=== PATIENT | female | born 1935 | race Caucasian/White ===

== ENCOUNTER 2019-10-29 13:45 | Emergency (ER) | payer MEDICARE ==
[~2019-10-29] VITALS: Ht 154.9 cm; Wt 62.7 kg
[2019-10-29] MEDS ORDERED: TIROSINT75 MC1 PO (13:53)
[2019-10-29] MEDS ORDERED: ATENOLOL50 MG PO ×2 (13:53→19:44)
[2019-10-29] MEDS ORDERED: LOSARTAN POTASS25 MG PO ×2 (13:54→19:44)
[2019-10-29] MEDS ORDERED: ATORVASTATIN CA20 MG PO ×2 (13:54→19:44)
[2019-10-29] MEDS ORDERED: ALDACTONE25 M1 PO ×2 (13:54→19:44)
[2019-10-29] MEDS ORDERED: FAMOTIDINE40 M1 PO ×2 (13:54→19:44)
[2019-10-29 14:27] LABS: EOS # 0.1 (0.04-0.40); EOS % 1.6 % (1.0-5.0); HEMATOCRIT 40.5 % (37.0-47.0); MEAN CELL VOLUME 97 fl (78-100); MEAN CORPUSCULAR HEMOGLOBIN 31 pg (27-31); MEAN CORPUSCULAR HGB CONC 32 g/dL (33-37); MEAN PLATELET VOLUME 9.2 fl (7.4-10.4); MONO # 0.3 (0.20-0.80); NEU # 4.7 (1.40-6.50); PLATELET COUNT 238 K/mm3 (130-400); RED BLOOD COUNT 4.18 M/mm3 (4.10-5.30); RED CELL DISTRIBUTION WIDTH 13.5 % (11.5-14.5); WHITE BLOOD COUNT 6.1 K/mm3 (4.8-10.8)
[2019-10-29 14:34] LABS: ALBUMIN 3.9 g/dL (3.4-4.8)
[2019-10-29 14:35] LABS: POTASSIUM 3.9 mmol/L (3.5-5.1); SODIUM 138 mmol/L (136-145)
[2019-10-29 14:36] LABS: CALCIUM 9.6 mg/dL (8.3-10.5)
[2019-10-29 14:37] LABS: GLUCOSE 102 mg/dL (65-105); TOTAL PROTEIN 6.9 g/dL (6.2-8.1)
[2019-10-29 14:38] LABS: CARBON DIOXIDE 24 mmol/L (23-31)
[2019-10-29 14:39] LABS: TOTAL BILIRUBIN 0.6 mg/dL (0.2-1.2)
[2019-10-29 14:42] LABS: AST-SGOT 23 U/L (5-34)
[2019-10-29 14:44] LABS: ALT/SGPT 20 U/L (0-55)
[2019-10-29 14:55] LABS: TROPONIN-I < 0.03 ng/mL (<0.030)
[2019-10-29 16:09] LABS: URINE APPEARANCE HAZY; URINE BILIRUBIN NEGATIVE (NEGATIVE); URINE BLOOD NEGATIVE (NEGATIVE); URINE COLOR YELLOW; URINE GLUCOSE NEGATIVE (NEGATIVE); URINE KETONE NEGATIVE (NEGATIVE); URINE LEUKOCYTE ESTERASE TRACE (NEGATIVE); URINE NITRATE NEGATIVE (NEGATIVE); URINE PROTEIN(semi-quant) TRACE mg/dL (NEGATIVE); URINE UROBILINOGEN NORMAL (NORMAL); URINE WBC 0-1 /hpf (0-3)
[2019-10-29] MEDS ORDERED: LEVOTHYROXIN0.075 MG PO (19:44)
[2019-10-29 20:41] VITALS: BP 192/78
== END 2019-10-29 20:52 | disposition home or self-care (01) ==
LOC: ED 13:45
PROVIDERS: Nurse Practitioner
DX: I10 Essential (primary) hypertension (principal); E78.5 Hyperlipidemia, unspecified; E03.9 Hypothyroidism, unspecified; Z87.891 Personal history of nicotine dependence

== ENCOUNTER 2021-06-13 14:54 | Emergency (ER) | payer MEDICARE ==
[~2021-06-13] VITALS: Wt 68.7 kg
[~2021-06-13 14:54] MED LIST: ALDACTONE25 M1 PO; ATENOLOL50 MG PO; ATORVASTATIN CA20 MG PO; FAMOTIDINE40 M1 PO; LEVOTHYROXIN0.075 MG PO; LEVOTHYROXINE0.05 MG PO; LOSARTAN POTASS25 MG PO
[2021-06-13 15:19] LABS: BASO # 0.02 K/mm3 (0.02-0.10); EOS # 0.33 K/mm3 (0.04-0.40); EOS % 1.8 % (1.0-5.0); HEMOGLOBIN 11.2 g/dL (12.5-16.0); LYMPH# 1.09 K/mm3 (1.50-4.00); MEAN CELL VOLUME 98 fl (78-100); MEAN CORPUSCULAR HEMOGLOBIN 31 pg (27-31); MEAN CORPUSCULAR HGB CONC 32 g/dL (33-37); MEAN PLATELET VOLUME 8.8 fl (7.4-10.4); MONO # 0.62 K/mm3 (0.20-0.80); NEU # 16.01 K/mm3 (1.40-6.50); PLATELET COUNT 242 K/mm3 (130-400); RED BLOOD COUNT 3.57 M/mm3 (4.10-5.30); RED CELL DISTRIBUTION WIDTH 12.6 % (11.5-14.5); WHITE BLOOD COUNT 18.1 K/mm3 (4.8-10.8)
[2021-06-13 15:34] LABS: ALBUMIN 3.5 g/dL (3.4-4.8); POTASSIUM 4.8 mmol/L (3.5-5.1); SODIUM 126 mmol/L (136-145)
[2021-06-13 15:35] LABS: CALCIUM 9.2 mg/dL (8.3-10.5)
[2021-06-13 15:36] LABS: GLUCOSE 113 mg/dL (65-105); TOTAL PROTEIN 6.3 g/dL (6.2-8.1)
[2021-06-13 15:37] LABS: CARBON DIOXIDE 18 mmol/L (23-31)
[2021-06-13 15:38] LABS: TOTAL BILIRUBIN 0.5 mg/dL (0.2-1.2)
[2021-06-13 15:40] LABS: D-DIMER 0.8 mg/L FEU (0.15-0.50)
[2021-06-13 15:42] LABS: AST-SGOT 19 U/L (5-34)
[2021-06-13 15:43] LABS: ALT/SGPT 15 U/L (0-55)
[2021-06-13 15:50] LABS: TROPONIN-I < 0.03 ng/mL (<0.030)
[2021-06-13] MEDS ORDERED: VITAMIN D3125 MC1 PO (17:35)
[2021-06-13] MEDS ORDERED: PROBIOTIC1 EAC1 PO (17:36)
[2021-06-13] MEDS ORDERED: VITAMIN B12 1541 TAB PO (17:37)
[2021-06-13] MEDS ORDERED: ALDACTONE 25MG25 MG PO (17:37)
[2021-06-13] MEDS ORDERED: VITAMIN C PUR1000 MG PO (17:38)
[2021-06-13] MEDS ORDERED: PHARMASSURE ZIN50 MG PO (17:39)
[2021-06-13] MEDS ORDERED: CORICIDIN COUGH1 TAB PO (17:40)
[2021-06-13] MEDS ORDERED: BEET (17:40)
[2021-06-13 18:14] VITALS: BP 164/60
[2021-06-13 19:19] LABS: URINE APPEARANCE CLEAR; URINE BILIRUBIN NEGATIVE (NEGATIVE); URINE BLOOD TRACE (NEGATIVE); URINE COLOR YELLOW; URINE GLUCOSE NEGATIVE (NEGATIVE); URINE KETONE NEGATIVE (NEGATIVE); URINE LEUKOCYTE ESTERASE NEGATIVE (NEGATIVE); URINE NITRATE NEGATIVE (NEGATIVE); URINE PROTEIN(semi-quant) 1+ mg/dL (NEGATIVE); URINE UROBILINOGEN NORMAL (NORMAL); URINE WBC 0-1 /hpf (0-3)
[2021-06-14] MEDS ORDERED: LEVOTHYROXIN0.075 MG PO (06:30)
== END 2021-06-13 18:14 | disposition other institution (70) ==
LOC: ED 14:54
PROVIDERS: Physician Assistant
DX: J44.9 Chronic obstructive pulmonary disease, unspecified (principal); I50.9 Heart failure, unspecified; I11.0 Hypertensive heart disease with heart failure; E87.1 Hypo-osmolality and hyponatremia; J18.9 Pneumonia, unspecified organism; R65.10 Systemic inflammatory response syndrome (SIRS) of non-infectious origin without acute organ dysfunction; E78.5 Hyperlipidemia, unspecified; E03.9 Hypothyroidism, unspecified; K21.9 Gastro-esophageal reflux disease without esophagitis; Z87.891 Personal history of nicotine dependence; Z20.822 Contact with and (suspected) exposure to COVID-19; Z88.1 Allergy status to other antibiotic agents; Z79.899 Other long term (current) drug therapy; Z79.890 Hormone replacement therapy
CPT/HCPCS: J1940; J7030; Q9967

== ENCOUNTER 2021-06-13 17:14 | Inpatient (IN) | payer MEDICARE ==
[~2021-06-13] VITALS: Wt 65.4 kg
[2021-06-13] MEDS ORDERED: VITAMIN D3125 MC1 PO (17:35)
[2021-06-13] MEDS ORDERED: PROBIOTIC1 EAC1 PO (17:36)
[2021-06-13] MEDS ORDERED: ALDACTONE 25MG25 MG PO (17:37)
[2021-06-13] MEDS ORDERED: VITAMIN B12 1541 TAB PO (17:37)
[2021-06-13] MEDS ORDERED: VITAMIN C PUR1000 MG PO (17:38)
[2021-06-13] MEDS ORDERED: PHARMASSURE ZIN50 MG PO (17:39)
[2021-06-13] MEDS ORDERED: CORICIDIN COUGH1 TAB PO (17:40)
[2021-06-13] MEDS ORDERED: BEET (17:40)
[2021-06-13 22:04] VITALS: BP 191/72
[2021-06-13 22:35] VITALS: BP 200/80
[2021-06-13 23:56] VITALS: BP 184/78
[2021-06-14] VITALS (7 sets, daily range): BP systolic 164–203; BP diastolic 67–80
[2021-06-14] MEDS ORDERED: LEVOTHYROXIN0.075 MG PO (06:30)
[2021-06-14 07:09] LABS: BASO # 0.01 K/mm3 (0.02-0.10); EOS # 0.01 K/mm3 (0.04-0.40); EOS % 0.1 % (1.0-5.0); HEMATOCRIT 32.9 % (37.0-47.0); HEMOGLOBIN 10.7 g/dL (12.5-16.0); MEAN CELL VOLUME 97 fl (78-100); MEAN CORPUSCULAR HEMOGLOBIN 32 pg (27-31); MEAN CORPUSCULAR HGB CONC 33 g/dL (33-37); MONO # 0.05 K/mm3 (0.20-0.80); NEU # 13.68 K/mm3 (1.40-6.50); PLATELET COUNT 252 K/mm3 (130-400); RED CELL DISTRIBUTION WIDTH 12.5 % (11.5-14.5); WHITE BLOOD COUNT 14.8 K/mm3 (4.8-10.8)
[2021-06-14 07:15] LABS: ALBUMIN 3.4 g/dL (3.4-4.8)
[2021-06-14 07:16] LABS: POTASSIUM 4.5 mmol/L (3.5-5.1)
[2021-06-14 07:17] LABS: CALCIUM 8.9 mg/dL (8.3-10.5)
[2021-06-14 07:20] LABS: TOTAL BILIRUBIN 0.3 mg/dL (0.2-1.2)
[2021-06-15 02:10] VITALS: BP 183/74
[2021-06-15 06:13] VITALS: BP 194/81
[2021-06-15 09:19] LABS: HEMATOCRIT 30.4 % (37.0-47.0); HEMOGLOBIN 9.9 g/dL (12.5-16.0); LYMPH# 0.66 K/mm3 (1.50-4.00); MEAN CELL VOLUME 98 fl (78-100); MEAN CORPUSCULAR HEMOGLOBIN 32 pg (27-31); MEAN CORPUSCULAR HGB CONC 33 g/dL (33-37); MEAN PLATELET VOLUME 8.9 fl (7.4-10.4); MONO # 0.11 K/mm3 (0.20-0.80); NEU # 17.23 K/mm3 (1.40-6.50); PLATELET COUNT 246 K/mm3 (130-400); RED BLOOD COUNT 3.11 M/mm3 (4.10-5.30); RED CELL DISTRIBUTION WIDTH 12.8 % (11.5-14.5); WHITE BLOOD COUNT 18.3 K/mm3 (4.8-10.8)
[2021-06-15 09:24] LABS: ALBUMIN 3.2 g/dL (3.4-4.8); POTASSIUM 4.9 mmol/L (3.5-5.1)
[2021-06-15 09:25] LABS: CALCIUM 8.6 mg/dL (8.3-10.5)
[2021-06-15 09:27] LABS: TOTAL PROTEIN 5.9 g/dL (6.2-8.1)
[2021-06-15 09:28] LABS: TOTAL BILIRUBIN 0.3 mg/dL (0.2-1.2)
[2021-06-15 10:08] VITALS: BP 178/70
[2021-06-15 14:00] VITALS: BP 188/68
[2021-06-15 18:03] VITALS: BP 170/52
[2021-06-15 22:13] VITALS: BP 170/52
[2021-06-16] VITALS (7 sets, daily range): BP systolic 170–213; BP diastolic 60–83
[2021-06-16 07:58] LABS: HEMATOCRIT 33.6 % (37.0-47.0); HEMOGLOBIN 10.9 g/dL (12.5-16.0); MEAN CELL VOLUME 98 fl (78-100); MEAN CORPUSCULAR HEMOGLOBIN 32 pg (27-31); MEAN CORPUSCULAR HGB CONC 32 g/dL (33-37); MEAN PLATELET VOLUME 8.6 fl (7.4-10.4); PLATELET COUNT 297 K/mm3 (130-400); RED BLOOD COUNT 3.43 M/mm3 (4.10-5.30); WHITE BLOOD COUNT 18.2 K/mm3 (4.8-10.8)
[2021-06-16 08:08] LABS: ALBUMIN 3.5 g/dL (3.4-4.8); POTASSIUM 4.5 mmol/L (3.5-5.1)
[2021-06-16 08:09] LABS: CALCIUM 9.1 mg/dL (8.3-10.5)
[2021-06-16 08:11] LABS: TOTAL PROTEIN 6.4 g/dL (6.2-8.1)
[2021-06-16 08:12] LABS: TOTAL BILIRUBIN 0.4 mg/dL (0.2-1.2)
[2021-06-16 08:29] LABS: MONOCYTE 5 % (3-10)
[2021-06-16 08:30] LABS: LYMPHOCYTE 6 % (20-51); NEUTROPHILS 89 % (42-75)
[2021-06-17 05:42] VITALS: BP 210/70
[2021-06-17 08:57] LABS: HEMATOCRIT 30.6 % (37.0-47.0); LYMPH# 1.24 K/mm3 (1.50-4.00); MEAN CELL VOLUME 97 fl (78-100); MEAN CORPUSCULAR HEMOGLOBIN 32 pg (27-31); MEAN CORPUSCULAR HGB CONC 33 g/dL (33-37); MEAN PLATELET VOLUME 8.5 fl (7.4-10.4); MONO # 0.67 K/mm3 (0.20-0.80); NEU # 9.04 K/mm3 (1.40-6.50); PLATELET COUNT 228 K/mm3 (130-400); RED BLOOD COUNT 3.15 M/mm3 (4.10-5.30); RED CELL DISTRIBUTION WIDTH 12.7 % (11.5-14.5)
[2021-06-17 09:10] LABS: POTASSIUM 4.1 mmol/L (3.5-5.1)
[2021-06-17 09:11] LABS: CALCIUM 8.7 mg/dL (8.3-10.5)
[2021-06-17 09:12] LABS: TOTAL PROTEIN 5.4 g/dL (6.2-8.1)
[2021-06-17 09:14] LABS: TOTAL BILIRUBIN 0.4 mg/dL (0.2-1.2)
[2021-06-17 10:01] VITALS: BP 193/63
[2021-06-17 14:04] VITALS: BP 174/68
[2021-06-17 17:58] VITALS: BP 185/63
[2021-06-17 22:34] VITALS: BP 182/62
[2021-06-18 02:24] VITALS: BP 183/64
[2021-06-18 05:22] VITALS: BP 188/76
[2021-06-18 09:32] LABS: BASO # 0.01 K/mm3 (0.02-0.10); EOS # 0.01 K/mm3 (0.04-0.40); EOS % 0.1 % (1.0-5.0); HEMATOCRIT 35.5 % (37.0-47.0); HEMOGLOBIN 11.7 g/dL (12.5-16.0); LYMPH# 1.76 K/mm3 (1.50-4.00); MEAN CELL VOLUME 96 fl (78-100); MEAN CORPUSCULAR HEMOGLOBIN 32 pg (27-31); MEAN CORPUSCULAR HGB CONC 33 g/dL (33-37); MEAN PLATELET VOLUME 8.8 fl (7.4-10.4); MONO # 0.45 K/mm3 (0.20-0.80); NEU # 10.41 K/mm3 (1.40-6.50); PLATELET COUNT 245 K/mm3 (130-400); RED BLOOD COUNT 3.71 M/mm3 (4.10-5.30); RED CELL DISTRIBUTION WIDTH 12.7 % (11.5-14.5); WHITE BLOOD COUNT 12.8 K/mm3 (4.8-10.8)
[2021-06-18 09:36] LABS: ALBUMIN 3.1 g/dL (3.4-4.8); POTASSIUM 4.3 mmol/L (3.5-5.1)
[2021-06-18 09:37] LABS: CALCIUM 8.6 mg/dL (8.3-10.5)
[2021-06-18 09:39] LABS: TOTAL PROTEIN 5.6 g/dL (6.2-8.1)
[2021-06-18 09:40] LABS: TOTAL BILIRUBIN 0.5 mg/dL (0.2-1.2)
[2021-06-18 10:20] VITALS: BP 144/65
[2021-06-18 14:23] VITALS: BP 146/65
[2021-06-18] MEDS ORDERED: DOXYCYCLINE MO100 M3 PO (15:59)
[2021-06-18] MEDS ORDERED: ELIQUIS5 MG PO ×2 (16:02→16:05)
[2021-06-18] MEDS ORDERED: SYNTHROID0.05 MG PO (16:10)
[2021-06-18] MEDS ORDERED: ACIDOPHILUS LA1 EAC1 PO (16:12)
[2021-06-18] MEDS ORDERED: NORVASC 10MG10 MG PO (16:22)
[2021-06-18] MEDS ORDERED: ZESTRIL5 M1 PO (16:23)
[2021-06-18] MEDS ORDERED: CLONIDINE HYDR0.1 MG PO (16:24)
[2021-06-18] MEDS ORDERED: PREDNISONE20 M1 PO (16:25)
== END 2021-06-18 16:57 | disposition home health service (06) | DRG 871 ==
LOC: MED/SURG 17:14
PROVIDERS: Nurse Practitioner; ADMIT Physician Assistant
DX: A41.9 Sepsis, unspecified organism (principal); J18.9 Pneumonia, unspecified organism; J44.1 Chronic obstructive pulmonary disease with (acute) exacerbation; J44.0 Chronic obstructive pulmonary disease with (acute) lower respiratory infection; E87.1 Hypo-osmolality and hyponatremia; K62.6 Ulcer of anus and rectum; I50.32 Chronic diastolic (congestive) heart failure; I82.413 Acute embolism and thrombosis of femoral vein, bilateral; I11.0 Hypertensive heart disease with heart failure; D17.1 Benign lipomatous neoplasm of skin and subcutaneous tissue of trunk; E03.9 Hypothyroidism, unspecified; K21.9 Gastro-esophageal reflux disease without esophagitis; E78.5 Hyperlipidemia, unspecified; Z85.41 Personal history of malignant neoplasm of cervix uteri; Z87.891 Personal history of nicotine dependence; Z90.710 Acquired absence of both cervix and uterus; Z88.1 Allergy status to other antibiotic agents
CPT/HCPCS: J0696; J1650; J1940; J2930; J7030; J7512

== ENCOUNTER → 2021-07-02 | Day surgery (SDC) | payer MEDICARE, MEDICAID ==
[~2021-07-02] MED LIST changes: +ACIDOPHILUS LA1 EAC1 PO; +ALDACTONE 25MG25 MG PO; +BEET; +CLONIDINE HYDR0.1 MG PO; +CORICIDIN COUGH1 TAB PO; +DOXYCYCLINE MO100 M3 PO; +ELIQUIS5 MG PO; +NORVASC 10MG10 MG PO; +PHARMASSURE ZIN50 MG PO; +PREDNISONE20 M1 PO; +PROBIOTIC1 EAC1 PO; +SYNTHROID0.05 MG PO; +VITAMIN B12 1541 TAB PO; +VITAMIN C PUR1000 MG PO; +VITAMIN D3125 MC1 PO; +ZESTRIL5 M1 PO
== END ==
LOC: MSO 10:12
DX: D17.1 Benign lipomatous neoplasm of skin and subcutaneous tissue of trunk (principal); I10 Essential (primary) hypertension; E78.5 Hyperlipidemia, unspecified; E03.9 Hypothyroidism, unspecified; K21.9 Gastro-esophageal reflux disease without esophagitis; Z85.41 Personal history of malignant neoplasm of cervix uteri; Z90.710 Acquired absence of both cervix and uterus

== ENCOUNTER → 2021-07-31 | Outpatient (CLI) | payer MEDICARE, MEDICAID ==
[2021-07-31 14:59] LABS: BASO # 0.02 K/mm3 (0.02-0.10); EOS # 0.16 K/mm3 (0.04-0.40); EOS % 2.5 % (1.0-5.0); HEMATOCRIT 30.5 % (37.0-47.0); HEMOGLOBIN 9.8 g/dL (12.5-16.0); LYMPH# 1.22 K/mm3 (1.50-4.00); MEAN CELL VOLUME 96 fl (78-100); MEAN CORPUSCULAR HEMOGLOBIN 31 pg (27-31); MEAN CORPUSCULAR HGB CONC 32 g/dL (33-37); MONO # 0.37 K/mm3 (0.20-0.80); NEU # 4.58 K/mm3 (1.40-6.50); PLATELET COUNT 297 K/mm3 (130-400); RED BLOOD COUNT 3.19 M/mm3 (4.10-5.30); WHITE BLOOD COUNT 6.4 K/mm3 (4.8-10.8)
[2021-07-31 15:16] LABS: MAGNESIUM 2.18 mg/dL (1.60-2.60)
[2021-08-01 08:12] LABS: ALBUMIN 3.7 g/dL (3.4-4.8); POTASSIUM 4.7 mmol/L (3.5-5.1)
[2021-08-01 08:13] LABS: CALCIUM 8.8 mg/dL (8.3-10.5)
[2021-08-01 08:14] LABS: TOTAL PROTEIN 6.2 g/dL (6.2-8.1)
[2021-08-01 08:16] LABS: TOTAL BILIRUBIN 0.5 mg/dL (0.2-1.2)
== END ==
LOC: LAB 14:22
PROVIDERS: Internal Medicine
DX: I10 Essential (primary) hypertension (principal)

== ENCOUNTER → 2021-08-01 | Outpatient (CLI) | payer MEDICARE, MEDICAID | LOC: RAD 13:58 → VAS 13:58 → RAD 14:00 | DX: I82.413 Acute embolism and thrombosis of femoral vein, bilateral (principal) ==

== ENCOUNTER → 2021-08-03 | Outpatient (CLI) | payer MEDICARE, MEDICAID | LOC: LAB 12:22 | DX: K90.9 Intestinal malabsorption, unspecified (principal); Z20.822 Contact with and (suspected) exposure to COVID-19 ==

== ENCOUNTER → 2021-08-23 | Outpatient (CLI) | payer MEDICARE, MEDICAID | LOC: RAD 12:52 | DX: R05.1 Acute cough (principal); Z86.718 Personal history of other venous thrombosis and embolism ==

== ENCOUNTER → 2021-08-30 | Outpatient (CLI) | payer MEDICARE, MEDICAID | LOC: RAD 12:57 | DX: R13.12 Dysphagia, oropharyngeal phase (principal); R05.9 Cough, unspecified ==

== ENCOUNTER → 2022-04-08 | Outpatient (CLI) | payer MEDICARE, MEDICAID ==
[2022-04-08 16:46] LABS: BASO # 0.01 K/mm3 (0.02-0.10); EOS # 0.09 K/mm3 (0.04-0.40); EOS % 0.9 % (1.0-5.0); HEMOGLOBIN 12.2 g/dL (12.5-16.0); LYMPH# 1.21 K/mm3 (1.50-4.00); MEAN CELL VOLUME 90 fl (78-100); MEAN CORPUSCULAR HEMOGLOBIN 32 pg (27-31); MEAN CORPUSCULAR HGB CONC 35 g/dL (33-37); MEAN PLATELET VOLUME 8.5 fl (7.4-10.4); MONO # 0.53 K/mm3 (0.20-0.80); NEU # 8.18 K/mm3 (1.40-6.50); PLATELET COUNT 292 K/mm3 (130-400); RED BLOOD COUNT 3.87 M/mm3 (4.10-5.30); RED CELL DISTRIBUTION WIDTH 12.5 % (11.5-14.5); WHITE BLOOD COUNT 10.1 K/mm3 (4.8-10.8)
[2022-04-08 17:39] LABS: POTASSIUM 4.1 mmol/L (3.5-5.1)
[2022-04-08 17:40] LABS: ALBUMIN 4.2 g/dL (3.4-4.8)
[2022-04-08 17:41] LABS: CALCIUM 9.7 mg/dL (8.3-10.5)
[2022-04-08 17:42] LABS: TOTAL PROTEIN 7.2 g/dL (6.2-8.1)
[2022-04-08 17:44] LABS: TOTAL BILIRUBIN 0.4 mg/dL (0.2-1.2)
[2022-04-08 17:49] LABS: MAGNESIUM 1.98 mg/dL (1.60-2.60)
== END ==
LOC: RAD 16:22
PROVIDERS: Internal Medicine
DX: M17.12 Unilateral primary osteoarthritis, left knee (principal)

== ENCOUNTER → 2022-07-09 | Outpatient (CLI) | payer MEDICARE, MEDICAID ==
[2022-07-09 16:22] LABS: BASO # 0.01 K/mm3 (0.02-0.10); EOS # 0.09 K/mm3 (0.04-0.40); EOS % 1.3 % (1.0-5.0); HEMATOCRIT 35.7 % (37.0-47.0); HEMOGLOBIN 11.9 g/dL (12.5-16.0); LYMPH# 1.16 K/mm3 (1.50-4.00); MEAN CELL VOLUME 95 fl (78-100); MEAN CORPUSCULAR HEMOGLOBIN 32 pg (27-31); MEAN CORPUSCULAR HGB CONC 33 g/dL (33-37); MEAN PLATELET VOLUME 9.3 fl (7.4-10.4); MONO # 0.39 K/mm3 (0.20-0.80); NEU # 5.04 K/mm3 (1.40-6.50); PLATELET COUNT 224 K/mm3 (130-400); RED BLOOD COUNT 3.75 M/mm3 (4.10-5.30); WHITE BLOOD COUNT 6.7 K/mm3 (4.8-10.8)
[2022-07-09 16:32] LABS: ALBUMIN 3.9 g/dL (3.4-4.8)
[2022-07-09 16:35] LABS: TOTAL PROTEIN 6.5 g/dL (6.2-8.1)
[2022-07-09 16:37] LABS: TOTAL BILIRUBIN 0.4 mg/dL (0.2-1.2)
[2022-07-09 16:41] LABS: MAGNESIUM 1.9 mg/dL (1.60-2.60)
== END ==
LOC: LAB 16:05
PROVIDERS: Internal Medicine
DX: E03.9 Hypothyroidism, unspecified (principal); I10 Essential (primary) hypertension; K90.9 Intestinal malabsorption, unspecified; E78.2 Mixed hyperlipidemia; J44.9 Chronic obstructive pulmonary disease, unspecified; I50.9 Heart failure, unspecified; L28.2 Other prurigo; R73.03 Prediabetes